=== PATIENT | male | born 1990 | race Caucasian/White ===

== ENCOUNTER 2017-01-13 20:31 | Observation (INO) | payer MEDICAID, SELFPAY ==
[2017-01-13 20:33] VITALS: BP 113/64; PULSE 67; RESP 14; TEMP 36.7; O2SAT 97; BMI 22.3
--- NOTE | 2017-01-13 21:31 | ED.VISSUMM ---
- ER Visit Summary Date of Service: 01/13/17 Chief Complaint: Insect bites with a rash and also requesting detox for heroin abuse History of Present Illness: The patient is a 26 M 13 - 14 year history of heroin abuse. States he does IV heroin. He wants detox. He is concerned he may . Also came in today because he had a rash from some type of insect bite. Physical Examination: Ill-appearing young male. Vital signs are stable afebrile. Does not look septic or toxic. HEENT exam is unremarkable. Neck nontender no lymphadenopathy. Lungs clear to auscultation bilaterally. Heart regular rate and rhythm no murmur appreciated. Abdomen soft nontender. Remedies moves all 4. Neurovascular intact. No abscesses. No cellulitis. He does have different areas a small localized reaction to some type of insect bite including his posterior left lower neck arms and legs. Neurologically is awake and alert without focal deficits. Test Results: [] Emergency Department Course and Treatment: Patient requesting detox for IV heroin abuse. I will speak to Dr. Janina Elias hospitalist for possible admission to be evaluated by yee hodge. Treatment Plan: [] Disposition: [place] Impression: Acute localized allergic reaction to insect bites. Requesting detox for IV heroin abuse. ED Disposition - Plan for ED Patient: Chief Complaint: Bite Referrals: NOT,DEFINED [Primary Care Provider] -
--- NOTE | 2017-01-13 21:35 | PCM.HP.STD ---
Problem List (1) Heroin abuse Status: Chronic (2) Chronic back pain Status: Chronic Qualifiers: Back pain location: back pain in unspecified location Back pain laterality: unspecified Qualified Code(s): M54.9 - Dorsalgia, unspecified; G89.29 - Other chronic pain (3) History of cocaine abuse Status: Chronic (4) History of tobacco use Status: Chronic History of Present Illness Date of Admission: 01/13/17 Chief Complaint: Acute Opiate Withdrawal The patient is a 26 y/o M w/ PMHx: Heroine IVDA (last usage 8 hours prior, 1-1.5 gm/day average usage), Tobacco use, Chronic back pain who presents to the [facility] ED on 01/13/17 w/ noted opiate withdrawal onset starting this early evening following last dose on day of ED presentation at approximately 3-4 pm with abdominal pain/cramping, generalized body aches and pains, rhinorrhea, piloerection, fatigue, restless leg, sweating, yawning. Patient interested in attaining clean status. In the ED VS included AF, HR 67, BP 113/64, RR 14, 975 on RA. No labs were performed in the ED. He notes having been in medical stabilization prior and was successfully clean/sober following but relapsed. He notes having been accepted into 180-housing program. Past Medical History Past Medical History (Chronic Problems): Chronic Problems Chronic back pain (Chronic) Heroin abuse (Chronic) History of cocaine abuse (Chronic) History of drug abuse (Chronic) History of tobacco use (Chronic) Allergies No Known Allergies Allergy (Verified 01/13/17 20:37) Home Medications: Ambulatory Orders Medication Instructions Recorded No Known/Unobtainable [No Known 01/13/17 Home Medications] Surgical History: - - T+A, Circumcision. Psychiatric History: No pertinent psych hx Lives: Friends Smoking Status: Current every day smoker - 1 ppd. Tobacco Use: Cigarettes Alcohol: Occasional Drugs: Heroin - *Family History Maternal History Items: Hypertension, - - Mental health. Paternal History Items: Diabetes, Heart Disease, Hypertension, Stroke Review of Systems Constitutional: Reports: Anorexia, Chills, Malaise, Weakness, Fatigue. Denies: Fever, Weight Change HEENT: Denies: Head Aches, Sinus Congestion, Sinus Drainage Cardiovascular: Denies: Chest Pain, Palpitations Respiratory: Denies: Cough, Shortness of breath at rest, Sputum production Gastrointestinal: Reports: Abdominal Pain, Diarrhea, Nausea, Vomiting Genitourinary: Denies: Dysuria Musculoskeletal: Denies: Joint Pain, Joint Tenderness Skin: Denies: Rash, Wounds Neurological: Denies: Numbness, Tingling, Focal weakness Psychiatric: Denies: Anxiety, Depression, Homicidal Ideations, Suicidal Ideations Hematologic/ Lymphatic: Denies: Easy Bruising, Easy Bleeding VTE Information - Inpt Only VTE Present on Admission: No VTE Mechan Device Prophylaxis: SCD's VTE Pharm Prophylaxis ordered?: No Reason prophylaxis not ordered:: Treatment Not Indicated Subjective: Seated upright in the ED bed, mildly agitated. Objective: Physical Examination: General: awake, alert, oriented x 3 and cooperative, seated upright in the ED bed, mildly agitated. Skin: normal color, turgor, no icterus, cyanosis except track dunham, recent injection regions without evidence of infections, some insect bites noted on the posterior neck region. HEENT: AT/NC, EOMI, PERRLA, mildly dry MM, no carotid bruits or JVD noted. Lungs: CTA bilaterally, moderate effort, mild decrease BL bases, occasional expiratory wheeze noted. Heart: Regular rate and rhythm; no gallop, rub audible. Abdomen: soft, this habitus, NTTP, ND, normal BS, + HM. Extremities: no cyanosis, clubbing, or edema. Neurological: patient awake, alert, oriented x 3; cognitive function intact; pupils equally reactive to light and accomodation; cranial nerves II-XII grossly normal, moving all 4 extremities, no focal deficits, strength mildly to moderately globally decreased secondary to acute presentation. Psychiatric: affect appears mildly agitated, no acute evidence of depressive or anxiety feelings. - Physical Exam Vital Signs Temp Pulse Resp BP Pulse Ox 98.0 F 67 14 113/64 97 01/13/17 20:33 01/13/17 20:33 01/13/17 20:33 01/13/17 20:33 01/13/17 20:33 Oxygen Delivery Method Room Air Weight: 151 lb Body Mass Index (BMI) 22.3 Assessment/Plan The patient is a 26 y/o M w/ PMHx: Heroine IVDA (last usage 8 hours prior, 1-1.5 gm/day average usage), Tobacco use, Chronic back pain who presents to the [facility] ED on 01/13/17 w/ noted opiate withdrawal onset starting this early evening following last dose on day of ED presentation at approximately 3-4 pm. (1) Acute Opiate Withdrawal: Will admit to [facility], obtain routine labs including CBC, CMP, urine for drug screen, urinalysis, serum lipase, routine EKG and will initiate and continue on [facility] service protocol with tapering course of Subutex, as needed Seroquel, Librium, Sinemet, Catapres, Bentyl, Vistaril, IV fluids, IV antiemetics, Tylenol as needed for pain. Once patient clinically improved and completion of taper nearing will plan [facility] assistance for transition to next level of rehabilitation care. (2) Polysubstance Abuse, IVDA Hx: Notes he has come into contact with an individual with hepatitis C but was not formally tested, amenable to testing now. Will obtain Hepatitis and HIV panel. Discussed that if positive result, he would currently not candidate for hep C treatment currently as needs to be clean, sober x 6 months, documented attendance NA or AA meetings, counseling and ongoing negative drug screens. Once appropriate GI, ID to initiate. Encouraged PCP establishment and follow-up. (3) Tobacco Abuse: Encouraged cessation, inpatient consultation per RT, NR if desired. (4) DVT Prophylaxis: DIANE, low risk, ambulation.
--- NOTE | 2017-01-13 21:40 | HP.PCM_ITS ---
Problem List (1) Heroin abuse Status: Chronic (2) Chronic back pain Status: Chronic Qualifiers: Back pain location: back pain in unspecified location Back pain laterality : unspecified Qualified Code(s): M54.9 - Dorsalgia, unspecified; G89.29 - Other chronic pain (3) History of cocaine abuse Status: Chronic (4) History of tobacco use Status: Chronic History of Present Illness Date of Admission: 01/13/17 Chief Complaint: Acute Opiate Withdrawal The patient is a 26 y/o M w/ PMHx: Heroine IVDA (last usage 8 hours prior, 1- 1.5 gm/day average usage), Tobacco use, Chronic back pain who presents to the [facility] ED on 01/13/17 w/ noted opiate withdrawal onset starting this early evening following last dose on day of ED presentation at approximately 3-4 pm with abdominal pain/cramping, generalized body aches and pains, rhinorrhea, piloerection, fatigue, restless leg, sweating, yawning. Patient interested in attaining clean status. In the ED VS included AF, HR 67, BP 113/64, RR 14, 975 on RA. No labs were performed in the ED. He notes having been in medical stabilization prior and was successfully clean/sober following but relapsed. He notes having been accepted into 180-housing program. Past Medical History Past Medical History (Chronic Problems): Chronic Problems Chronic back pain (Chronic) Heroin abuse (Chronic) History of cocaine abuse (Chronic) History of drug abuse (Chronic) History of tobacco use (Chronic) Allergies No Known Allergies Allergy (Verified 01/13/17 20:37) Home Medications: Ambulatory Orders Medication Instructions Recorded No Known/Unobtainable [No Known 01/13/17 Home Medications] Surgical History: - - T+A, Circumcision. Psychiatric History: No pertinent psych hx Lives: Friends Smoking Status: Current every day smoker - 1 ppd. Tobacco Use: Cigarettes Alcohol: Occasional Drugs: Heroin - *Family History Maternal History Items: Hypertension, - - Mental health. Paternal History Items: Diabetes, Heart Disease, Hypertension, Stroke Review of Systems Constitutional: Reports: Anorexia, Chills, Malaise, Weakness, Fatigue. Denies: Fever, Weight Change HEENT: Denies: Head Aches, Sinus Congestion, Sinus Drainage Cardiovascular: Denies: Chest Pain, Palpitations Respiratory: Denies: Cough, Shortness of breath at rest, Sputum production Gastrointestinal: Reports: Abdominal Pain, Diarrhea, Nausea, Vomiting Genitourinary: Denies: Dysuria Musculoskeletal: Denies: Joint Pain, Joint Tenderness Skin: Denies: Rash, Wounds Neurological: Denies: Numbness, Tingling, Focal weakness Psychiatric: Denies: Anxiety, Depression, Homicidal Ideations, Suicidal Ideations Hematologic/ Lymphatic: Denies: Easy Bruising, Easy Bleeding VTE Information - Inpt Only VTE Present on Admission: No VTE Mechan Device Prophylaxis: SCD's VTE Pharm Prophylaxis ordered?: No Reason prophylaxis not ordered:: Treatment Not Indicated Subjective: Seated upright in the ED bed, mildly agitated. Objective: Physical Examination: General: awake, alert, oriented x 3 and cooperative, seated upright in the ED bed, mildly agitated. Skin: normal color, turgor, no icterus, cyanosis except track dunham, recent injection regions without evidence of infections, some insect bites noted on the posterior neck region. HEENT: AT/NC, EOMI, PERRLA, mildly dry MM, no carotid bruits or JVD noted. Lungs: CTA bilaterally, moderate effort, mild decrease BL bases, occasional expiratory wheeze noted. Heart: Regular rate and rhythm; no gallop, rub audible. Abdomen: soft, this habitus, NTTP, ND, normal BS, + HM. Extremities: no cyanosis, clubbing, or edema. Neurological: patient awake, alert, oriented x 3; cognitive function intact; pupils equally reactive to light and accomodation; cranial nerves II-XII grossly normal, moving all 4 extremities, no focal deficits, strength mildly to moderately globally decreased secondary to acute presentation. Psychiatric: affect appears mildly agitated, no acute evidence of depressive or anxiety feelings. - Physical Exam Vital Signs Temp Pulse Resp BP Pulse Ox 98.0 F 67 14 113/64 97 01/13/17 20:33 01/13/17 20:33 01/13/17 20:33 01/13/17 20:33 01/13/17 20:33 Oxygen Delivery Method Room Air Weight: 151 lb Body Mass Index (BMI) 22.3 Assessment/Plan The patient is a 26 y/o M w/ PMHx: Heroine IVDA (last usage 8 hours prior, 1- 1.5 gm/day average usage), Tobacco use, Chronic back pain who presents to the [facility] ED on 01/13/17 w/ noted opiate withdrawal onset starting this early evening following last dose on day of ED presentation at approximately 3-4 pm. (1) Acute Opiate Withdrawal: Will admit to MS, obtain routine labs including CBC , CMP, urine for drug screen, urinalysis, serum lipase, routine EKG and will initiate and continue on [facility] service protocol with tapering course of Subutex, as needed Seroquel, Librium, Sinemet, Catapres, Bentyl, Vistaril, IV fluids, IV antiemetics, Tylenol as needed for pain. Once patient clinically improved and completion of taper nearing will plan [facility] assistance for transition to next level of rehabilitation care. (2) Polysubstance Abuse, IVDA Hx: Notes he has come into contact with an individual with hepatitis C but was not formally tested, amenable to testing now. Will obtain Hepatitis and HIV panel. Discussed that if positive result, he would currently not candidate for hep C treatment currently as needs to be clean , sober x 6 months, documented attendance NA or AA meetings, counseling and ongoing negative drug screens. Once appropriate GI, ID to initiate. Encouraged PCP establishment and follow-up. (3) Tobacco Abuse: Encouraged cessation, inpatient consultation per RT, NR if desired. (4) DVT Prophylaxis: DIANE, low risk, ambulation.
[2017-01-13 22:03] VITALS: BP 125/76; PULSE 61; RESP 16; O2SAT 100
[2017-01-13 22:15] VITALS: BP 125/76; PULSE 61; RESP 16; O2SAT 100
[2017-01-13 22:48] VITALS: BMI 23.4; BMI 23.5
--- NOTE | 2017-01-13 23:26 | EKG12_ITS ---
Test Reason : AM EKG Blood Pressure : / mmHG Vent. Rate : 058 BPM Atrial Rate : 058 BPM P-R Int : 144 ms QRS Dur : 086 ms QT Int : 438 ms P-R-T Axes : 039 064 050 degrees QTc Int : 429 ms Sinus bradycardia Otherwise normal ECG When compared with ECG of 15-NOV-2012 18:04, No significant change was found Confirmed by DARYL MIXON, DEN ([id number]), editorial specialist KAMINI HOLLEY ([id number]) on 01/25/2017 1:43:25 PM Referred By: ONUR Confirmed By:DEN BRITO MD
[2017-01-13 23:34] VITALS: BP 116/69; PULSE 64; RESP 18; TEMP 36; O2SAT 100
[2017-01-13 23:35] VITALS: BP 116/69; PULSE 64; RESP 16; TEMP 36
[2017-01-14] VITALS (7 sets, daily range): BP systolic 96–134; BP diastolic 43–69; PULSE 60–79; RESP 14–16; TEMP 36–36.9; O2SAT 100
[2017-01-14 00:10] LABS: Absolute Lymphocyte Count 3.31 X10^3/ul (0.83-4.51); Absolute Neutrophil Count 5.8 X10^3/uL (2.0-7.7); Basophil# 0.03 X10^3/uL; Basophil% 0.3 % (0-1); Eosinophil# 0.35 X10^3/uL; Eosinophils% 3.4 % (0-5); Hematocrit 38.1 % (40-54); Hemoglobin 13.2 g/dl (13.0-16.5); Lymphocyte # 3.31 X10^3/ul (4.0); Lymphocyte % 32.4 % (19-41); Mean Corp Hgb Conc 34.6 g/gl (32-36); Mean Corpuscular Hgb 30.3 pg (27.0-32.0); Mean Corpuscular Volume 87.4 fL (80-94); Mean Platelet Vol. 10.1 fl (6.2-12.0); Monocyte% 6.8 % (0-10); Neutrophil # 5.82 X10^3/uL (2.7-7.7); Platelet Count 177 K/mm3 (150-450); RBC Distribution Width CV 12.5 % (11.6-14.6); RBC Distribution Width SD 40.3 fl (35.1-43.9); Red Blood Count 4.36 M/mm3 (4.6-6.2); White Blood Count 10.2 K/mm3 (4.4-11.0)
[2017-01-14] MEDS: cloNIDine HCl 0.1 MG Tablet 0.2 MG PO (00:11)
[2017-01-14] MEDS: traZODone 50 MG Tablet PO ×2 (00:12→21:54)
[2017-01-14] MEDS: chlordiazePOXIDE 25 MG Capsule PO ×7 (00:13→22:21)
[2017-01-14 00:18] LABS: POSITIVE COUNT NO; POSITIVE DIFFERENTIAL NO; POSITIVE MORPHOLOGY NO
[2017-01-14 00:25] LABS: ALB/GLOB Ratio 0.8 RATIO (0.9-2.4); AST(SGOT) 23 U/L (15-37); Alanine Aminotransfer ALT/SGPT 27 U/L (12-78); Albumin, Serum 3.4 g/dL (3.4-5.0); Alkaline Phosphatase 85 U/L (45-117); Anion Gap 7 (5-15); BUN 11 mg/dL (7-18); BUN/Creat Ratio 16.3 RATIO (10-20); Calcium,Total 8.7 mg/dL (8.5-10.1); Chloride 104 mmol/L (98-107); Creatinine, Serum 0.67 mg/dL (0.70-1.30); EST Glomerular Filtration Rate 150 mL/min (>60); Est Glom Filt Rate - Afr Amer 181 mL/min (>60); Estimated Creatinine Clearance 165.61 ml/min; Globulin 4.3 g/dL (2.3-3.5); Glucose 124 mg/dL (70-110); Lipase 80 U/L (73-393); Potassium 3.7 mmol/L (3.5-5.1); Protein, Total 7.7 g/dL (6.4-8.2); Sodium Level 141 mmol/L (136-145)
[2017-01-14 00:33] LABS: Alcohol, Blood (Medical)-Serum < 3.0 mg/dL
[2017-01-14 00:53] LABS: Amphetamine Urine VISTA POSITIVE (<1000 ng/mL); Barbiturate Urine VISTA NEGATIVE (< 200 ng/mL); Benzodiazepine Urine VISTA NEGATIVE (< 200 ng/mL); Cocaine Urine VISTA NEGATIVE (< 300 ng/mL); Ecstacy Urine VISTA NEGATIVE (< 500 ng/mL); Methadone Urine VISTA NEGATIVE (< 300 ng/mL); PCP Urine VISTA NEGATIVE (< 25 ng/mL); THC Urine VISTA NEGATIVE (< 50 ng/mL); Vista UDS pH Range 6
[2017-01-14] MEDS: Buprenorphine HCl 2 MG TAB.SUBL SL ×2 (06:14→14:44)
--- NOTE | 2017-01-14 07:24 | PCM.PN.HOSP ---
Subjective: Is a 26-year-old gentleman with history of heroine dependence admitted with acute opiate withdrawal patient has been admitted to regular nursing floor where patient is currently being managed with Subutex for medical stabilization. Objective: GENERAL: cooperative HEENT: Clear conjunctiva, NECK; supple, normal thyroid, CHEST: Clear to auscultation bilaterally, HEART: Regular S1 S2, no audible murmurs ABDOMEN: soft, non-tender, normoactive bowel sounds, RECTAL: deferred EXTREMITIES: No edema, no clubbing, no cyanosis. COOLER WORKER: Awake, no lateralizing signs. SKIN: No erythema, Vitals/I&O's: Vital Signs Temp Pulse Resp BP Pulse Ox 97.4 F 60 16 102/43 100 01/14/17 06:16 01/14/17 06:16 01/14/17 06:16 01/14/17 06:16 01/13/17 23:34 Oxygen Delivery Method Room Air Weight: 72.1 kg Body Mass Index (BMI) 23.4 Intake and Output for Last 24 Hours 01/12/17 01/13/17 01/14/17 23:59 23:59 23:59 Intake Total 550 Balance 550 Laboratory Results 01/13/17 23:52: WBC 10.2, RBC 4.36 L, Hgb 13.2, Hct 38.1 L, MCV 87.4, MCH 30.3, MCHC 34.6, RDW 12.5, RDW Differential 40.3, Plt Count 177, MPV 10.1, Immature Gran % (Auto) 0.100, Neut % (Auto) 57.0, Lymph % (Auto) 32.4, [place] % (Auto) 6.8, Eos % (Auto) 3.4, Baso % (Auto) 0.3, Absolute Neuts (auto) 5.8, Absolute Lymphs (auto) 3.31, Total Counted Not Reportable 01/13/17 23:52: Sodium 141, Potassium 3.7, Chloride 104, Carbon Dioxide 30.0, Anion Gap 7, BUN 11, Creatinine 0.67 L, Estim Creat Clear Calc 165.61, Est GFR (MDRD) Af Amer 181, Est GFR (MDRD) Non-Af 150, BUN/Creatinine Ratio 16.3, Glucose 124 H, Calcium 8.7, Total Bilirubin 0.40, AST 23, ALT 27, Alkaline Phosphatase 85, Total Protein 7.7, Albumin 3.4, Globulin 4.3 H, Albumin/Globulin Ratio 0.8 L, Lipase 80 01/13/17 23:52: Ethyl Alcohol < 3.0 01/13/17 23:52: Hepatitis A IgM Ab Pending, Hepatitis A Ab Total Pending, Hep Bs Antigen Pending, Hep B Core Total Ab Pending, Hep B Core IgM Ab Pending, Hepatitis C Comment Pending, HIV 1&2 Ag/Ab, 4th Gen Pending 01/14/17 00:25: Urine Opiates Screen POSITIVE H, Urine Methadone Screen NEGATIVE, Ur Barbiturates Screen NEGATIVE, Ur Phencyclidine Scrn NEGATIVE, Ur Amphetamines Screen POSITIVE H, U Methamphetamin-MDMA NEGATIVE, U Benzodiazepines Scrn NEGATIVE, Urine Cocaine Screen NEGATIVE, U Cannabinoids Screen NEGATIVE, Ur Drug Screen Comment Current Medications Acetaminophen (Tylenol) 650 mg PO Q4H PRN PRN PRN Reason: Temp>99.1F Al Hydroxide/Mg Hydroxide (Mylanta Ii) 30 ml PO Q6H PRN PRN PRN Reason: dyspesia Bisacodyl (Dulcolax) 10 mg RECTAL DAILY PRN PRN Reason: Constipation Buprenorphine HCl (Buprenorphine Hcl) 4 mg SL Q8H TAMIKO PRN Reason: Taper Stop: 01/17/17 01:44 Last Admin: 01/14/17 06:14 Dose: 4 mg Carbidopa/Levodopa (Sinemet) 1 tablet PO Q8H PRN PRN PRN Reason: RESTLESSNESS Chlordiazepoxide (Librium) 25 mg PO Q6H PRN PRN PRN Reason: Mod-Sev Anxiety (score 2-3/3) Chlordiazepoxide (Librium) 25 mg PO Q4 TAMIKO Stop: 01/14/17 18:01 Last Admin: 01/14/17 06:14 Dose: 25 mg Clonidine (Catapres) 0.1 mg PO Q2H PRN PRN PRN Reason: Hot/Cold Sweats or Anxiety Dicyclomine HCl (Bentyl) 20 mg PO Q6H PRN PRN PRN Reason: Abdomnial Discomfort Folic Acid (Folic Acid) 1 mg PO DAILY@0800 [facility] Hydroxyzine Pamoate (Vistaril) 50 mg PO Q6H PRN PRN PRN Reason: Mild Anxiety (score 1/3) Last Admin: 01/14/17 00:12 Dose: 50 mg Ibuprofen (Motrin) 800 mg PO Q8H PRN PRN PRN Reason: Mild-Moderate Pain (1-5/10) Loperamide HCl (Imodium) 2 - 4 mg PO UD PRN PRN Reason: LOOSE STOOLS Methocarbamol (Methocarbamol) 750 mg PO 4X/DAY PRN PRN Reason: Muscle Aches Multivitamins/Minerals (Multivitamin With Minerals) 1 tablet PO DAILYCM [facility] Nicotine (Nicoderm Cq (Pbkc)) 21 mg TRANSDERM. DAILY TAMIKO Ondansetron HCl (Zofran Odt) 4 mg PO Q6H PRN PRN PRN Reason: NAUSEA Quetiapine Fumarate (Seroquel) 25 mg PO Q6H PRN PRN PRN Reason: Moderate Anxiety (score 2/3) Senna (Senokot) 1 tablet PO QHS PRN PRN Reason: Constipation Thiamine HCl (Vitamin B1) 100 mg PO DAILYCM [facility] Trazodone HCl (Desyrel) 50 mg PO QHS [facility] Last Admin: 01/14/17 00:12 Dose: 50 mg Assessment/Plan Patient is a 26-year-old gentleman with past medical history significant for heroin dependence presented with acute opiate withdrawal 1. Acute opioid withdrawal patient has been admitted to regular nursing floor for medical stabilization using Subutex 2. Heroin dependence patient presented with acute opioid withdrawal was counseled on cessation 3. Tobacco dependence counseled on cessation, offered nicotine patch for tobacco cravings 4. DVT prophylaxis low risk did encourage early ambulation
[2017-01-14] MEDS: Thiamine Hydrochloride 100 MG Tablet PO (10:12)
[2017-01-14] MEDS: Folic Acid 1 MG Tablet PO (10:12)
[2017-01-14] MEDS: Multivitamins,Ther W-Minerals Tablet 1 TABLET PO (10:12)
[2017-01-14] MEDS: cloNIDine HCl 0.1 MG Tablet PO ×2 (10:21→22:21)
[2017-01-14] MEDS: Carbidopa/Levodopa 25/100 Tablet PO (14:49)
[2017-01-14] MEDS: Methocarbamol 750 MG Tablet PO (14:49)
[2017-01-14] MEDS: Buprenorphine HCl 2 MG TAB.SUBL 4 MG SL (22:02)
[2017-01-15 04:31] VITALS: BP 105/53; PULSE 58; RESP 16; TEMP 36.9
[2017-01-15 05:59] VITALS: BP 105/53; PULSE 55; RESP 16; TEMP 36.6
[2017-01-15] MEDS: Buprenorphine HCl 2 MG TAB.SUBL SL (06:00)
[2017-01-15 06:08] LABS: HEPATITIS B SURFACE AG Negative (Negative); Hepatitis A AB, Total Negative (Negative); Hepatitis A IgM Antibody Negative (Negative); Hepatitis B Core AB IgM Negative (Negative); Hepatitis B Core Ab Total Negative (Negative); Hepatitis C Ab >11.0 s/co ratio (0.0-0.9)
--- NOTE | 2017-01-15 07:12 | PCM.DC ---
- Discharge Diagnoses Current Active Problems: Current Active and Chronic Problems Heroin abuse (Chronic) You will use the following diet at home:: No restrictions Allergies/Adverse Reactions: Allergies No Known Allergies Allergy (Verified 01/13/17 20:37) Medications to take at Discharge No Known/Unobtainable [No Known Home Medications] 01/13/17 Primary Care Physician: NOT,DEFINED [NON-STAFF] - Proposed Discharge Date: 01/15/17
--- NOTE | 2017-01-15 07:16 | DS.PCM_ITS ---
Discharge Date and Diagnosis Date of Admission: 01/13/17 Date of Discharge: 01/15/17 - Primary Discharge Diagnosis Acute opioid withdrawal - Secondary Discharge Diagnosis Chronic Problems Heroin abuse (Chronic) Chronic back pain (Chronic) History of cocaine abuse (Chronic) History of drug abuse (Chronic) History of tobacco use (Chronic) Hospital Course and Treatment Summary of Care Provided: Patient is a 26-year-old gentleman with past medical history significant for heroin dependence presented with acute opiate withdrawal 1. Acute opioid withdrawal patient has been admitted to regular nursing floor for medical stabilization using Subutex. Patient was discharged and transferred to [facility] in [facility] to continue with this treatment. 2. Heroin dependence patient presented with acute opioid withdrawal was counseled on cessation 3. Tobacco dependence counseled on cessation, offered nicotine patch for tobacco cravings 4. DVT prophylaxis low risk did encourage early ambulation Home Medications: Medications to take at Discharge No Known/Unobtainable [No Known Home Medications] 01/13/17 Primary Care Physician: NOT,DEFINED [NON-STAFF] - Disposition: Home Minutes spent on discharge:: 35 Patient Condition:: Stable Meaningful Use Info Meaningful Use Diagnoses (Choose all that apply): None applicable
[2017-01-15 08:50] VITALS: BP 113/48; PULSE 67; RESP 14; TEMP 36.7
[2017-01-15] MEDS: Multivitamins,Ther W-Minerals Tablet 1 TABLET PO (08:59)
[2017-01-15] MEDS: Thiamine Hydrochloride 100 MG Tablet PO (08:59)
[2017-01-15] MEDS: Carbidopa/Levodopa 25/100 Tablet PO (08:59)
[2017-01-15] MEDS: Folic Acid 1 MG Tablet PO (08:59)
[2017-01-15] MEDS: chlordiazePOXIDE 25 MG Capsule PO (08:59)
[2017-01-15 18:53] LABS: HIV 1/0/2 SCREEN 4TH GEN Non Reactive (Non Reactive); Hep B Surface Antibodies Non Reactive (.)
== END 2017-01-15 09:05 | disposition home or self-care (01) | DRG 773 ==
LOC: ED 06-24 14:25 → MS2 06-24 14:25
PROVIDERS: Admitting Provider Family Medicine; Emergency Provider Emergency Medicine; Visit Provider Internal Medicine
DX: F11.23 Opioid dependence with withdrawal (principal); M54.9 Dorsalgia, unspecified; G89.29 Other chronic pain; F17.210 Nicotine dependence, cigarettes, uncomplicated; R21 Rash and other nonspecific skin eruption; W57.XXXA Bitten or stung by nonvenomous insect and other nonvenomous arthropods, initial encounter
CPT/HCPCS: 36415; 80053; 80307; 80320; 83690; 85025; 86703; 86704; 86705; 86706; 86708; 86709; 86803; 87340; 93005; 99218; 99283; 99406; G0378; G0480